=== PATIENT | male | born 1945 | race Caucasian/White ===

== ENCOUNTER 2017-07-18 09:53 | Emergency (ER) | payer MEDICARE, OTHER ==
[2017-07-18] MEDS ORDERED: Sodium Chloride 0.9% 10 ML Syringe FLUSH PRN (10:00)
--- NOTE | 2017-07-18 10:27 | EDM.PDOC ---
ED HPI GENERAL MEDICAL PROBLEM - General Chief Complaint: Chest Pain Stated Complaint: HX OF HEART ATTACKS, HAVING CHEST PAIN, [id number] Time Seen by Provider: 07/18/17 10:14 Source of Information: Reports: Patient History Limitations: Reports: No Limitations - History of Present Illness INITIAL COMMENTS - FREE TEXT/NARRATIVE: This 72 yo male patient reports to the ED with chest pain. The patient reports his pain started last night, lasted for about 2 hours and continues to have some "tightness" in his chest this morning. The patient reports a past history of 2 heart attacks (the last one was in October) and 7 stents. The patient did not come to the ED last night because he did not want to drive on the [place] and [place] [address] [place]. The patient reports his pain is currently about a 3/10 with some numbness in his left arm. The patient reports that he has nitro at home, but did not take it when he was experiencing pain. Onset Date: 07/17/17 Onset Time: 18:00 Duration: Resolved Prior to Arrival Location: Reports: Chest (tightness/pressure) Quality: Reports: Pressure Severity: Severe (last night) Improves with: Reports: Rest Associated Symptoms: Reports: Chest Pain Left Chest Pain Score (Numeric/FACES): 3 - Related Data Allergies Allergy/AdvReac Type Severity Reaction Status Date / Time No Known Allergies Allergy Verified 07/18/17 10:03 ED ROS GENERAL - Review of Systems Review Of Systems: ROS reveals no pertinent complaints other than HPI. ED EXAM, GENERAL - Physical Exam Exam: See Below Exam Limited By: No Limitations General Appearance: Alert, WD/WN, Mild Distress Eye Exam: Bilateral Eye: EOMI, Normal Inspection, PERRL Ears: Normal External Exam, Normal Canal, Hearing Grossly Normal, Normal TMs Nose: Normal Inspection, Normal Mucosa, No Blood Throat/Mouth: Normal Inspection, Normal Lips, Normal Teeth, Normal Gums, Normal Oropharynx, Normal Voice, No Airway Compromise Head: Atraumatic, Normocephalic Neck: Normal Inspection, Supple, Non-Tender, Full Range of Motion Respiratory/Chest: No Respiratory Distress, Lungs Clear, Normal Breath Sounds, No Accessory Muscle Use, Chest Non-Tender Cardiovascular: Normal Peripheral Pulses, Regular Rate, Rhythm, No Edema, No Gallop, No JVD, No Murmur, No Rub GI/Abdominal: Normal Bowel Sounds, Soft, Non-Tender, No Organomegaly, No Distention, No Abnormal Bruit, No Mass (Male) Exam: Deferred Rectal (Males) Exam: Deferred Back Exam: Normal Inspection, Full Range of Motion, NT Extremities: Normal Inspection, Normal Range of Motion, Non-Tender, Normal Capillary Refill, No Pedal Edema Neurological: Alert, Oriented, CN II-XII Intact, Normal Cognition, Normal Gait, Normal Reflexes, No Motor/Sensory Deficits Psychiatric: Normal Affect, Normal Mood Skin Exam: Warm, Dry, Intact, Normal Color, No Rash Lymphatic: No Adenopathy Course - Vital Signs Last Recorded V/S: Last Vital Signs Temp 36.7 C 07/18/17 10:21 Pulse 97 07/18/17 10:21 Resp 17 07/18/17 10:21 BP 165/88 H 07/18/17 10:21 Pulse Ox 99 07/18/17 10:21 - Orders/Labs/Meds Orders: Active Orders 24 hr Category Date Time Status EKG Documentation Completion [RC] URGENT Care 07/18/17 09:56 Active Chest 1V Frontal [CR] Urgent Exams 07/18/17 09:56 Ordered Sodium Chloride 0.9% [Saline Flush] Med 07/18/17 10:00 Active 10 ml FLUSH ASDIRECTED PRN Saline Lock Insert [OM.PC] Routine Oth 07/18/17 10:00 Ordered Medication Orders Sodium Chloride (Saline Flush) 10 ml FLUSH ASDIRECTED PRN PRN Reason: Keep Vein Open Last Admin: 07/18/17 10:06 Dose: 10 ml Labs: Laboratory Tests 07/18/17 07/18/17 Range/Units 10:04 10:04 WBC 7.5 (5.0-10.0) 10^3/uL RBC 5.39 (4.6-6.2) 10^6/uL Hgb 16.8 (14.0-18.0) g/dL Hct 48.3 (40.0-54.0) % MCV 89.6 (80-100) fL MCH 31.2 (27.0-34.0) pg MCHC 34.8 (33.0-35.0) g/dL Plt Count 230 (150-450) 10^3/uL Neut % (Auto) 56.1 (42.2-75.2) % Lymph % (Auto) 30.9 (20.5-50.1) % [place] % (Auto) 10.8 H (2-8) % Eos % (Auto) 1.9 (1.0-3.0) % Baso % (Auto) 0.3 (0.0-1.0) % Sodium 139 (135-145) mmol/L Potassium 4.3 (3.6-5.0) mmol/L Chloride 106 (101-111) mmol/L Carbon Dioxide 27.0 (21.0-31.0) mmol/L Anion Gap 10.3 BUN 21 H (7-18) mg/dL Creatinine 1.2 (0.6-1.3) mg/dL Est Cr Clr Drug Dosing 53.83 mL/min Estimated GFR (MDRD) 60 BUN/Creatinine Ratio 17.50 Glucose 112 H (74-105) mg/dL Calcium 9.3 (8.4-10.2) mg/dl Total Bilirubin 0.7 (0.2-1.0) mg/dL AST 23 (10-42) IU/L ALT 35 (10-60) IU/L Alkaline Phosphatase 62 (42-121) IU/L Troponin I < 0.02 (0.00-0.02) ng/ml Total Protein 7.8 (6.7-8.2) g/dl Albumin 4.2 (3.2-5.5) g/dl Globulin 3.6 Albumin/Globulin Ratio 1.17 Meds: Medications Generic Name Dose Route Start Last Admin Trade Name Freq PRN Reason Stop Dose Admin Sodium Chloride 10 ml 07/18/17 10:00 07/18/17 10:06 Saline Flush FLUSH 10 ml ASDIRECTED PRN Administration Keep Vein Open Departure - Departure Time of Disposition: 10:44 Disposition: Home, Self-Care 01 Condition: Fair Clinical Impression: Angina at rest Instructions: Angina Pectoris, [id number] Forms: ED Department Discharge Care Plan Goals: The patient was advised of the examination, EKG, lab and x-ray results during the visit. The patient was encouraged to follow-up with his primary care facility for further evaluation and management. The patient was encouraged to take his nitroglycerin for any symptoms similar to his experience last night. If the patient has any additional symptoms or concerns, the patient should either return to the emergency department or visit his primary care facility. - My Orders Last 24 Hours: My Active Orders 07/18/17 09:56 EKG Documentation Completion [RC] URGENT Chest 1V Frontal [CR] Urgent 07/18/17 10:00 Sodium Chloride 0.9% [Saline Flush] 10 ml FLUSH ASDIRECTED PRN Saline Lock Insert [OM.PC] Routine - Assessment/Plan Last 24 Hours: My Active Orders 07/18/17 09:56 EKG Documentation Completion [RC] URGENT Chest 1V Frontal [CR] Urgent 07/18/17 10:00 Sodium Chloride 0.9% [Saline Flush] 10 ml FLUSH ASDIRECTED PRN Saline Lock Insert [OM.PC] Routine
[2017-07-18 10:31] LABS: CHLORIDE,CL 106 mmol/L (101-111); SODIUM,NA 139 mmol/L (135-145)
--- NOTE | 2017-07-18 10:58 | CR ---
Clinical history: 72-year-old male chest pain. Interpretation: Negative exam. Normal cardiac silhouette without alveolar edema or dependent effusion. No lung mass or hilar lymphadenopathy. No focal lobar pneumonia, atelectasis or collapse. No pneumothorax. CONCLUSION: No acute cardiopulmonary abnormality.
--- NOTE | 2017-07-19 11:21 | EKG ---
07/18/2017 - NELLY CHUN I reviewed the EKG and agree with the machine's reading. [facility] /[id number]
== END 2017-07-18 10:50 | disposition home or self-care (01) ==
LOC: DL.ED 09:53
DX: I20.9 Angina pectoris, unspecified (principal); Z95.5 Presence of coronary angioplasty implant and graft
CPT/HCPCS: 36415; 71010; 80053; 84484; 85025; 93005; 93010; 99285; J7050; 99284

== ENCOUNTER 2019-07-22 09:39 | Emergency (ER) | payer MEDICARE, OTHER ==
--- NOTE | 2019-07-22 10:01 | CR ---
EXAMINATION: Chest 1V Frontal SEX: Male AGE: 74 years CLINICAL HISTORY: 74-year-old female chest pain and dizziness. INTERPRETATION: AP portable chest. 1. No acute new cardiopulmonary abnormality identified in the interval since 18 July 2017 exam. 2. Less than optimal inspiratory effort crowding the cardiac silhouette (external nuclear monitoring technician leads). No pulmonary vascular congestion, cephalization of flow, alveolar edema or dependent effusion. 3. No new lung mass, hilar lymphadenopathy or focal lobar pneumonia. 4. No atelectasis/collapse. No pneumothorax. CONCLUSION: Negative exam.
[2019-07-22 10:19] LABS: ANION GAP 13.1; CHLORIDE,CL 102 mmol/L (101-111); SODIUM,NA 138 mmol/L (135-145)
--- NOTE | 2019-07-22 11:32 | EDM.PDOC ---
ED HPI GENERAL MEDICAL PROBLEM - General Chief Complaint: Chest Pain Stated Complaint: CHEST PAIN Time Seen by Provider: 07/22/19 09:55 Source of Information: Reports: Patient, Provider (Dr. Roberts), RN, RN Notes Reviewed - History of Present Illness INITIAL COMMENTS - FREE TEXT/NARRATIVE: patient presents to ER from [facility] from Dr. Roberts's office. Patient presented today to the clinic with complaints of chest pain that radiated into the left shoulder at times beginning last night. Patient states the pain was constant. Patient has a history of coronary artery disease, ME 2, and stents 7. Patient states the pain began last night, was intermittent, and pain is completely gone upon arrival to the ER.Patient states he has not had anything for pain, and has not had any nitroglycerin today. Patient denies any nausea, vomiting, recent illness, cough, or increased shortness of breath. Onset: Sudden Onset Date: 07/21/19 - Related Data Allergies Allergy/AdvReac Type Severity Reaction Status Date / Time No Known Allergies Allergy Verified 01/28/19 07:36 Home Meds: Home Meds Acetaminophen 500 mg PO Q6HR PRN 01/27/19 [History] Aspirin [Halfprin] 81 mg PO DAILY 01/27/19 [History] Clopidogrel [Plavix] 75 mg PO DAILY 01/27/19 [History] Famotidine 20 mg PO ASDIRECTED 01/27/19 [History] Isosorbide Mononitrate [Isosorbide Mononitrate ER] 30 mg PO DAILY 01/27/19 [ History] Metoprolol Succinate [Toprol Xl] 75 mg PO DAILY 01/27/19 [History] Nitroglycerin 0.4 mg SL ASDIRECTED 01/27/19 [History] atorvaSTATin [Lipitor] 40 mg PO BEDTIME 01/27/19 [History] lisinopriL [Prinivil] 20 mg PO DAILY 01/27/19 [History] Past Medical History Cardiovascular History: Reports: High Cholesterol, Hypertension, ME, Stents Gastrointestinal History: Reports: GERD Musculoskeletal History: Reports: Arthritis, Other (See Below) Other Musculoskeletal History: torn rotator cuff left arm - Infectious Disease History Infectious Disease History: Reports: Measles, Mumps - Past Surgical History Cardiovascular Surgical History: Reports: Coronary Artery Stent Social & Family History - Family History Cardiac: Reports: ME Other Cardiac Family History: grandfather - Tobacco Use Smoking Status *Q: Former Smoker Used Tobacco, but Quit: Yes Month/Year Tobacco Last Used: 1987 - Caffeine Use Caffeine Use: Reports: Coffee - Alcohol Use Days Per Week of Alcohol Use: 1 Number of Drinks Per Day: 1 Total Drinks Per Week: 1 - Recreational Drug Use Recreational Drug Use: No ED ROS GENERAL - Review of Systems Review Of Systems: Comprehensive ROS is negative, except as noted in HPI. ED EXAM, GENERAL - Physical Exam Exam: See Below Exam Limited By: No Limitations General Appearance: Alert, WD/WN, No Apparent Distress Eye Exam: Bilateral Eye: EOMI, Normal Inspection Ears: Normal External Exam, Hearing Grossly Normal Nose: Normal Inspection Throat/Mouth: Normal Inspection, Normal Voice, No Airway Compromise Head: Atraumatic, Normocephalic Neck: Normal Inspection, Supple, Non-Tender, Full Range of Motion Respiratory/Chest: No Respiratory Distress, Lungs Clear, No Accessory Muscle Use , Chest Non-Tender, Decreased Breath Sounds Cardiovascular: Normal Peripheral Pulses, Regular Rate, Rhythm, No Edema, No Gallop, No JVD, No Murmur, No Rub Peripheral Pulses: 2+: Radial (L), Radial (R) GI/Abdominal: Normal Bowel Sounds, Soft, Non-Tender (Male) Exam: Deferred Rectal (Males) Exam: Deferred Back Exam: Normal Inspection, Full Range of Motion, NT Extremities: Normal Inspection, Normal Range of Motion, Non-Tender, Normal Capillary Refill, No Pedal Edema Neurological: Alert, Oriented, CN II-XII Intact, Normal Cognition, Normal Gait, Normal Reflexes, No Motor/Sensory Deficits Psychiatric: Normal Affect, Normal Mood Skin Exam: Warm, Dry, Intact, Normal Color, No Rash Lymphatic: No Adenopathy Course - Vital Signs Last Recorded V/S: Last Vital Signs Temp 98.3 F 07/22/19 09:41 Pulse 87 07/22/19 09:41 Resp 18 07/22/19 09:41 BP 144/87 H 07/22/19 09:41 Pulse Ox 96 07/22/19 09:41 - Orders/Labs/Meds Orders: Active Orders 24 hr Category Date Time Status EKG Documentation Completion [RC] URGENT Care 07/22/19 09:40 Active Labs: Laboratory Tests 07/22/19 07/22/19 Range/Units 09:35 09:35 WBC 7.2 (5.0-10.0) 10^3/uL RBC 5.52 (4.6-6.2) 10^6/uL Hgb 17.4 (14.0-18.0) g/dL Hct 49.4 (40.0-54.0) % MCV 89.5 (80-100) fL MCH 31.5 (27.0-34.0) pg MCHC 35.2 H (33.0-35.0) g/dL Plt Count 239 (150-450) 10^3/uL Neut % (Auto) 57.1 (42.2-75.2) % Lymph % (Auto) 29.0 (20.5-50.1) % [place] % (Auto) 11.6 H (2-8) % Eos % (Auto) 2.2 (1.0-3.0) % Baso % (Auto) 0.1 (0.0-1.0) % Sodium 138 (135-145) mmol/L Potassium 4.1 (3.6-5.0) mmol/L Chloride 102 (101-111) mmol/L Carbon Dioxide 27.0 (21.0-31.0) mmol/L Anion Gap 13.1 BUN 16 (7-18) mg/dL Creatinine 1.0 (0.6-1.3) mg/dL Est Cr Clr Drug Dosing 64.81 mL/min Estimated GFR (MDRD) > 60 BUN/Creatinine Ratio 16.00 Glucose 96 (74-105) mg/dL Calcium 9.0 (8.4-10.2) mg/dl Total Bilirubin 0.9 (0.2-1.0) mg/dL AST 22 (10-42) IU/L ALT 30 (10-60) IU/L Alkaline Phosphatase 65 (42-121) IU/L Troponin I < 0.02 (0.00-0.02) ng/ml Total Protein 7.3 (6.7-8.2) g/dl Albumin 4.0 (3.2-5.5) g/dl Globulin 3.3 Albumin/Globulin Ratio 1.21 - Radiology Interpretation Free Text/Narrative:: chest x-ray: negative exam See radiologist's report Departure - Departure Time of Disposition: 11:30 Disposition: Home, Self-Care 01 Reason for Transfer *Q: Other Condition: Fair Clinical Impression: Angina at rest Instructions: Angina Pectoris, [id number] Forms: ED Department Discharge Additional Instructions: use nitroglycerin as prescribed if experiencing chest pain Return to the ER with any further chest pain or problems Follow-up with your primary care provider Sepsis Event Note - Evaluation Sepsis Screening Result: No Definite Risk - Focused Exam Vital Signs: Vital Signs Temp Pulse Resp BP Pulse Ox 07/22/19 09:41 98.3 F 87 18 144/87 H 96 Date Exam was Performed: 07/22/19 Time Exam was Performed: 15:30 - My Orders Last 24 Hours: My Active Orders 07/22/19 09:40 EKG Documentation Completion [RC] URGENT - Assessment/Plan Last 24 Hours: My Active Orders 07/22/19 09:40 EKG Documentation Completion [RC] URGENT
== END 2019-07-22 11:36 | disposition home or self-care (01) ==
LOC: DL.ED 09:39
DX: I20.9 Angina pectoris, unspecified (principal)
CPT/HCPCS: 36415; 71045; 80053; 84484; 85025; 93005; 99284; 99285-25

== ENCOUNTER 2024-03-07 05:28 | Inpatient (IN) | payer MEDICARE, OTHER ==
[2024-03-07] MEDS: Sodium Chloride 0.9% 10 ML Syringe FLUSH PRN (05:40)
[2024-03-07 05:43] LABS: BASOPHILS PERCENT AUTO 0.2 % (0.0-1.0); EOSINOPHILS PERCENT AUTO 0.6 % (1.0-3.0); HEMATOCRIT 43.5 % (40.0-54.0); HEMOGLOBIN 15.1 g/dL (14.0-18.0); LYMPHOCYTES PERCENT AUTO 9.2 % (20.5-50.1); MEAN CORPUSCULAR HEMOGLOBIN 31.2 pg (27.0-34.0); MEAN CORPUSCULAR HGB CONC 34.7 g/dL (33.0-35.0); MEAN CORPUSCULAR VOLUME 89.9 fL (80-100); MONOCYTES PERCENT AUTO 14.2 % (2-8); NEUTROPHILS PERCENT AUTO 75.8 % (42.2-75.2); PLATELET COUNT,PLT 187 10^3/uL (150-450); RED BLOOD CELL COUNT 4.84 10^6/uL (4.6-6.2); WHITE BLOOD CELL COUNT,WBC 8.4 10^3/uL (5.0-10.0)
[2024-03-07 06:06] LABS: A/G RATIO 0.91; ALBUMIN 3.1 g/dL (3.4-5.0); ANION GAP 15.9 mEq/L (7-13); BILIRUBIN TOTAL 0.4 mg/dL (0.2-1.0); BUN/CREATININE RATIO 13.3 (No establ ref range); CALCIUM 8.7 mg/dL (8.5-10.1); CREATININE 1.13 mg/dL (0.70-1.30); EST CRCL DRUG DOSING (CG) 52.12 mL/min; MAGNESIUM 1.5 mg/dL (1.8-2.4); POTASSIUM,K 3.9 mmol/L (3.5-5.1); PROTEIN TOTAL,TP 6.5 g/dL (6.4-8.2)
[2024-03-07 06:19] LABS: PROTHROMBIN TIME 10.4 SEC (9.0-12.0)
[2024-03-07] MEDS ORDERED: Promethazine 25 MG/ML SDV IM PRN (10:50)
[2024-03-07] MEDS ORDERED: Naloxone 2 MG/2 ML Syringe IVPUSH PRN (10:50)
[2024-03-07] MEDS ORDERED: Nitroglycerin 0.4 MG Tab.SL SL SCH (11:00)
[2024-03-07 11:21] LABS: BILIRUBIN DIRECT 0.1 mg/dL (0.0-0.2); T4 FREE 0.86 ng/dL (0.76-1.46); TSH ULTRASENSITIVE 0.89 uIU/mL (0.36-3.74)
[2024-03-07] MEDS: Magnesium Sulfate/Water 2 GM in Premix Bag 1 BAG IV ONE (12:08)
[2024-03-07] MEDS: REMDESIVIR 200 MG in Sodium Chloride 0.9% 250 ML IV ONE (12:34)
[2024-03-07] MEDS: Acetaminophen 325 MG Tab PO PRN (12:44)
[2024-03-07] MEDS: Magnesium Sulfate/Water 50 ML ONE (15:49)
[2024-03-07] MEDS: atorvaSTATin 20 MG Tab PO SCH (20:10)
[2024-03-07] MEDS: Melatonin 3 MG Tab PO PRN (21:49)
[2024-03-08] MEDS: Ondansetron 4 MG/2 ML SDV IVPUSH PRN (03:10)
[2024-03-08] MEDS: HYDROmorphone 0.5 MG/0.5 ML Syringe IVPUSH PRN (03:10)
[2024-03-08 06:23] LABS: BASOPHILS PERCENT AUTO 0.1 % (0.0-1.0); HEMATOCRIT 47.9 % (40.0-54.0); HEMOGLOBIN 16.4 g/dL (14.0-18.0); LYMPHOCYTES PERCENT AUTO 10.6 % (20.5-50.1); MEAN CORPUSCULAR HEMOGLOBIN 31.5 pg (27.0-34.0); MEAN CORPUSCULAR HGB CONC 34.2 g/dL (33.0-35.0); MEAN CORPUSCULAR VOLUME 92.1 fL (80-100); MONOCYTES PERCENT AUTO 14.9 % (2-8); NEUTROPHILS PERCENT AUTO 74.4 % (42.2-75.2); PLATELET COUNT,PLT 179 10^3/uL (150-450); WHITE BLOOD CELL COUNT,WBC 8.6 10^3/uL (5.0-10.0)
[2024-03-08 06:54] LABS: ALBUMIN 3.3 g/dL (3.4-5.0); ANION GAP 12.7 mEq/L (7-13); BILIRUBIN TOTAL 0.4 mg/dL (0.2-1.0); BUN/CREATININE RATIO 15.3 (No establ ref range); C-REACTIVE PROTEIN 2.88 ng/dL (<=0.50); CALCIUM 8.8 mg/dL (8.5-10.1); CREATININE 1.18 mg/dL (0.70-1.30); EST CRCL DRUG DOSING (CG) 49.92 mL/min; MAGNESIUM 2.2 mg/dL (1.8-2.4); POTASSIUM,K 4.7 mmol/L (3.5-5.1)
[2024-03-08 07:00] LABS: A/G RATIO 0.89
[2024-03-08] MEDS: Enoxaparin 40 MG/0.4 ML Syringe SUBCUT SCH (09:34)
[2024-03-08] MEDS: Aspirin 81 MG Tab.EC PO SCH (09:34)
[2024-03-08] MEDS: Famotidine 20 MG Tab PO SCH (09:34)
[2024-03-08] MEDS: Metoprolol Succinate 50 MG Tab.ER PO SCH (09:35)
[2024-03-08] MEDS: REMDESIVIR 100 MG in Sodium Chloride 0.9% 100 ML IV SCH (09:35)
[2024-03-08] MEDS: Clopidogrel 75 MG Tab PO SCH (09:35)
[2024-03-08] MEDS: Isosorbide Mononitrate 30 MG Tab.ER PO SCH (09:36)
[2024-03-08] MEDS: Lisinopril 20 MG Tab PO SCH (09:36)
[2024-03-08] MEDS: Benzocaine/Cetylpyridinium/Menthol Lozenge MUCMEM PRN (09:47)
[2024-03-08] MEDS: Acetaminophen/HYDROcodone 325-5 MG Tab PO PRN (20:25)
[2024-03-09 06:40] LABS: BASOPHILS PERCENT AUTO 0.1 % (0.0-1.0); HEMATOCRIT 45.6 % (40.0-54.0); HEMOGLOBIN 15.5 g/dL (14.0-18.0); MEAN CORPUSCULAR HEMOGLOBIN 31.5 pg (27.0-34.0); MEAN CORPUSCULAR VOLUME 92.7 fL (80-100); MONOCYTES PERCENT AUTO 18.1 % (2-8); NEUTROPHILS PERCENT AUTO 55.8 % (42.2-75.2); PLATELET COUNT,PLT 182 10^3/uL (150-450); RED BLOOD CELL COUNT 4.92 10^6/uL (4.6-6.2); WHITE BLOOD CELL COUNT,WBC 7.1 10^3/uL (5.0-10.0)
[2024-03-09 06:58] LABS: ANION GAP 13.2 mEq/L (7-13); BILIRUBIN DIRECT 0.1 mg/dL (0.0-0.2); BILIRUBIN TOTAL 0.5 mg/dL (0.2-1.0); BUN/CREATININE RATIO 23.5 (No establ ref range); C-REACTIVE PROTEIN 4.44 ng/dL (<=0.50); CALCIUM 8.5 mg/dL (8.5-10.1); CREATININE 1.15 mg/dL (0.70-1.30); EST CRCL DRUG DOSING (CG) 51.22 mL/min; POTASSIUM,K 4.2 mmol/L (3.5-5.1); PROTEIN TOTAL,TP 6.5 g/dL (6.4-8.2)
[2024-03-09 07:01] LABS: A/G RATIO 0.86
[2024-03-09] MEDS: Amoxicillin/Clavulanate K 500-125 MG Tab PO ONE (12:14)
[2024-03-09] MEDS ORDERED: Benzocaine 20% Topical Spray UD ONE (14:10)
[2024-03-09] MEDS: Benzocaine 20% Oral Spray 59.2 ML Canister MUCMEM PRN (19:35)
[2024-03-09] MEDS: Amoxicillin/Clavulanate K 500-125 MG Tab PO SCH (21:28)
[2024-03-09] MEDS: Saccharomyces Boulardii (Probiotic) 250 MG Cap PO SCH (21:28)
[2024-03-09] MEDS: Famotidine 20 MG/2 ML SDV IVPUSH ONE (22:44)
[2024-03-09] MEDS: Pantoprazole 40 MG in Sodium Chloride 0.9% 100 ML IV ONE (22:59)
[2024-03-09] MEDS: Calcium Carbonate 500 MG Tab.Chew PO PRN (23:12)
[2024-03-09] MEDS: Pantoprazole 40 MG Vial IVPUSH ONE (23:13)
[2024-03-10 06:13] LABS: BASOPHILS PERCENT AUTO 0.2 % (0.0-1.0); EOSINOPHILS PERCENT AUTO 1.9 % (1.0-3.0); HEMATOCRIT 47.3 % (40.0-54.0); HEMOGLOBIN 15.8 g/dL (14.0-18.0); LYMPHOCYTES PERCENT AUTO 23.1 % (20.5-50.1); MEAN CORPUSCULAR HGB CONC 33.4 g/dL (33.0-35.0); MEAN CORPUSCULAR VOLUME 92.7 fL (80-100); MONOCYTES PERCENT AUTO 15.1 % (2-8); NEUTROPHILS PERCENT AUTO 59.7 % (42.2-75.2); PLATELET COUNT,PLT 180 10^3/uL (150-450); WHITE BLOOD CELL COUNT,WBC 6.2 10^3/uL (5.0-10.0)
[2024-03-10 06:26] LABS: ALBUMIN 2.9 g/dL (3.4-5.0); ANION GAP 13.4 mEq/L (7-13); BILIRUBIN DIRECT 0.2 mg/dL (0.0-0.2); BILIRUBIN TOTAL 0.4 mg/dL (0.2-1.0); C-REACTIVE PROTEIN 4.32 ng/dL (<=0.50); CALCIUM 8.8 mg/dL (8.5-10.1); CREATININE 1.1 mg/dL (0.70-1.30); EST CRCL DRUG DOSING (CG) 53.55 mL/min; POTASSIUM,K 5.4 mmol/L (3.5-5.1); PROTEIN TOTAL,TP 6.5 g/dL (6.4-8.2)
[2024-03-10 06:28] LABS: A/G RATIO 0.81
[2024-03-10] MEDS: Cholecalciferol (Vitamin D3) 25 MCG Tab PO ONE (10:47)
[2024-03-11] MEDS: Cholecalciferol (Vitamin D3) 25 MCG Tab PO SCH (08:54)
[2024-03-11] MEDS: Sodium Polystyrene Sulfonate 15 GM/60 ML Susp 60 ML Bot PO ONE (09:27)
[2024-03-12] MEDS ORDERED: Lisinopril 20 MG Tab PO SCH (09:00)
== END 2024-03-11 15:15 | disposition home or self-care (01) | DRG 179 ==
LOC: DL.ED 05:28 → DL.MS 10:39
PROVIDERS: ADMIT Internal Medicine; ATTEND Internal Medicine
PROC: 8E0ZXY6 Isolation (ICD-10-PCS; principal; 2024-03-07)
PROC: 3E0DX3Z Introduction of Anti-inflammatory into Mouth and Pharynx, External Approach (ICD-10-PCS; 2024-03-07)
DX: U07.1 COVID-19 (principal); I10 Essential (primary) hypertension; R26.81 Unsteadiness on feet; K21.9 Gastro-esophageal reflux disease without esophagitis; E87.6 Hypokalemia; Z66 Do not resuscitate; E88.09 Other disorders of plasma-protein metabolism, not elsewhere classified; I25.119 Atherosclerotic heart disease of native coronary artery with unspecified angina pectoris; Z79.82 Long term (current) use of aspirin; Z79.899 Other long term (current) drug therapy; E78.00 Pure hypercholesterolemia, unspecified; M25.512 Pain in left shoulder; E83.42 Hypomagnesemia; R73.9 Hyperglycemia, unspecified; Z95.5 Presence of coronary angioplasty implant and graft; I25.2 Old myocardial infarction; Z87.891 Personal history of nicotine dependence
CPT/HCPCS: 36415; 71045; 80053; 82248; 83735; 83880; 84439; 84443; 84484 ×2; 85025; 85610; 85730; 87804 ×2; 93005; 93010; 96365; 99284; 99285; J3475; U0002; 73020-LT; 80061; 82306; 86140; 87081; 87430; A9270-GY; J0248; J1170; J1650; J2405; J2470; J3490; J7050

== ENCOUNTER 2025-02-16 11:56 | Emergency (ER) | payer MEDICARE, OTHER | END 2025-02-16 13:34 | disposition home or self-care (01) | LOC: DL.ED 11:56 | DX: M25.552 Pain in left hip (principal); I10 Essential (primary) hypertension; E78.00 Pure hypercholesterolemia, unspecified; I25.2 Old myocardial infarction; M19.90 Unspecified osteoarthritis, unspecified site; Z95.5 Presence of coronary angioplasty implant and graft; Z79.82 Long term (current) use of aspirin; Z79.899 Other long term (current) drug therapy; W01.198A Fall on same level from slipping, tripping and stumbling with subsequent striking against other object, initial encounter | CPT/HCPCS: 70450; 72125; 99284 ==